=== PATIENT | female | born 1985 | race Caucasian/White ===

== ENCOUNTER → 2017-04-14 | Outpatient (CLI) | payer BC ==
[2017-04-14 17:23] LABS: Basophils % (A) 0 %; CH 31.2; CHCM 32.4; Eosinophils # (A) 0.1 k/uL (0-0.7); Eosinophils % (A) 1 %; HCT 41.8 % (34.0-46.0); HGB 13.7 gm/dL (11.4-16.0); Luc # (Auto) 0.12; Luc % (Auto) 1; Lymphocytes # (A) 2.3 k/uL (1.0-4.8); Lymphocytes % (A) 23 %; MCH 31.8 pg (25.0-35.0); MCHC 32.9 g/dL (31.0-37.0); MCV 96.7 fL (80.0-100.0); Mean Platelet Volume 7.8; Monocytes # (A) 0.4 k/uL (0-1.0); Monocytes % (A) 4 %; Neutrophils % (A) 71 %; RBC 4.32 m/uL (3.80-5.40); RDW 12.3 % (11.5-15.5); WBC (Perox) 10.05
== END | disposition home or self-care (01) ==
LOC: LABPAT 16:45
PROVIDERS: ATTEND Obstetrics & Gynecology
DX: Z01.812 Encounter for preprocedural laboratory examination (principal)
CPT/HCPCS: 85025

== ENCOUNTER 2017-04-20 11:37 | Day surgery (SDC) | payer BC ==
[2017-04-19 13:03] VITALS: BMI 32.5
[~2017-04-20 11:37] MED LIST: DEXAMETHASONE SOD PHOSPHATE 10 MG/ML 1 ML VIAL IV ONE; HYDROmorphone 0.5 MG/0.5 ML SYRINGE IVP PRN; LACTATED RINGERS 1,000 ML IV SCH; LIDOCAINE 1% 20 ML VIAL (10MG/ML) FOR IV START INTRADERMA PRN; ONDANSETRON 4 MG/2 ML VIAL IVP ONE; SCOPOLAMINE 1.5MG/72HR PATCH TRANSDERM ONE
[2017-04-20 12:05] VITALS: RESP 18
[2017-04-20] MEDS ORDERED: MIDAZOLAM 2 MG/2 ML VIAL IVP ONE (12:26)
--- NOTE | 2017-04-20 12:26 | P.HPOB ---
History of Present Illness H&P Date: 04/20/17 Chief Complaint: Pelvic pain with left ovarian cyst Malena is a 31-year-old who has a 5 cm left ovarian cyst. Patient has had symptomatic pain over the last several months and has found it difficult to function due to the increase in her pain. It is caused her to miss work and his change her lifestyle significantly. She is scheduled for a diagnostic laparoscopy with cystectomy versus cystotomy. Risks/benefits/alternatives to this procedure were discussed with the patient in detail and all questions are answered for her prior to proceeding to the operating room. On physical exam this a well-developed well-nourished female whose HEENT is otherwise unremarkable. Heart regular, lungs clear, extremities without pain. Abdomen soft nontender. Bowel sounds are positive. Pelvic exam reveals mild fullness in left adnexa otherwise no gross findings. Assessment left ovarian cyst. Plan diagnostic laparoscopy Past Medical History Additional Past Medical History / Comment(s): ovarian cyst History of Any Multi-Drug Resistant Organisms: None Reported Past Surgical History: Appendectomy Additional Past Surgical History / Comment(s): CYST REMOVED FROM NECK Past Anesthesia/Blood Transfusion Reactions: No Reported Reaction Smoking Status: Current every day smoker - Past Family History Father Family Medical History: Cancer Medications and Allergies Home Medications Medication Instructions Recorded Confirmed Type FLUoxetine HCL [PROzac] 1 each PO HS 04/19/17 04/20/17 History Allergies Allergy/AdvReac Type Severity Reaction Status Date / Time No Known Allergies Allergy Verified 04/19/17 12:59 Exam Osteopathic Statement: *. No significant issues noted on an osteopathic structural exam other than those noted in the History and Physical/Consult. - Vital Signs Vital signs: Vital Signs Temp Pulse Resp BP Pulse Ox 04/20/17 12:04 98.5 F 80 18 113/76 98
[2017-04-20] MEDS ORDERED: SUCCINYLCHOLINE CHLORIDE VIAL 200 MG/10 ML VIAL IV ONE (12:58)
[2017-04-20] MEDS ORDERED: KETOROLAC 30 MG/ML 1 ML VIAL ONE (12:58)
[2017-04-20] MEDS ORDERED: LIDOCAINE 1% INJ 10MG/ML (20 ML MDV) ONE (12:58)
[2017-04-20] MEDS ORDERED: PROPOFOL 10 MG/ML 20 ML VIAL IV ONE (12:58)
[2017-04-20] MEDS ORDERED: MIDAZOLAM 2 MG/2 ML VIAL ONE (12:58)
[2017-04-20] MEDS ORDERED: fentaNYL (PF) 50 MCG/ML 2 ML AMP ONE (12:58)
[2017-04-20] MEDS ORDERED: BUPIVACAINE (PF) 0.25% 30 ML VIAL SQ ONE (13:35)
--- NOTE | 2017-04-20 13:40 | P.OP ---
Date of Procedure: 04/20/17 Preoperative Diagnosis: Left ovarian cyst and chronic pelvic pain Postoperative Diagnosis: Same with stage I endometriosis Procedure(s) Performed: Diagnostic laparoscopy with left ovarian cystotomy and electrofulguration of endometrial implants Anesthesia: ANNMARIE Surgeon: Bebo Macdonald Estimated Blood Loss (ml): 3 Pathology: none sent Condition: stable Disposition: same day Operative Findings: 5 vesicular lesions on the fundal region of the uterus which were electrofulgurated consistent with endometriosis 5 cm cyst opened with opened J- hook cautery and drained Description of Procedure: Patient was taken to the operating suite where a general anesthetic was found be adequate. She was prepped and draped in normal sterile fashion and placed in dorsal lithotomy position. Initially a speculum was inserted into the vagina into lip of cervix was identified and grasped with an Allis clamp. It was then sounded and a kroner manipulator was inserted without difficulty. Red rubber cath was then used to drain the bladder of urine and then the incidents other than manipulator were removed. Gloves were changed and attention was turned to abdominal portion procedure where approximately 2 mL of quarter percent Marcaine was injected periumbilically. Through this injected anesthetic a 5 mm skin incision was made and through this incision under direct visualization with an optical trocar and sleeve the camera was inserted. Peritoneal placement was assured gas was allowed to fully insufflate the abdomen and patient's placement steep Trendelenburg position. In the right lower quadrant under direct visualization a second 5 mm skin incision was made and another 5 mm port was inserted through this opening. Uterus was then elevated and observations were made there were 5 small clear vesicular lesions consistent with endometriosis which were electrofulgurated on the fundal posterior region of the uterus. Once this was accomplished left ovary was brought upwards uterus was allowed to put behind it for support and using J- hook cautery a hole was created in the cyst wall. It was then drained. Uterus was then elevated and suction irrigation of the pelvis was done. Once this was accomplished no bleeding is noted therefore all instruments were removed sponge , lap, needle counts were all correct 2 area and skin incisions were then closed with 4-0 Vicryl subcuticularly and the remaining 8 mL of quarter percent Marcaine were injected around these incisions. From the vagina and patient was taken to the recovery room in stable and satisfactory condition Plan - Discharge Summary New Discharge Prescriptions: New HYDROcodone/APAP 5-325MG [[place] 5-325] 1 tab PO Q4HR PRN #30 tab PRN Reason: Pain Ibuprofen [Motrin] 600 mg PO Q6HR PRN #30 tab PRN Reason: Pain No Action FLUoxetine HCL [PROzac] 1 each PO HS Discharge Medication List FLUoxetine HCL [PROzac] 1 each PO HS 04/19/17 [History] HYDROcodone/APAP 5-325MG [[place] 5-325] 1 tab PO Q4HR PRN #30 tab 04/20/17 [Rx] Ibuprofen [Motrin] 600 mg PO Q6HR PRN #30 tab 04/20/17 [Rx] Follow up Appointment(s)/Referral(s): Bebo Macdonald DO [Doctor of Osteopathic Medicine] - 2 Weeks Activity/Diet/Wound Care/Special Instructions: No heavy lifting, limit stairs and driving and pelvic rest. If any high temperatures, heavy bleeding, or severe pain call my office
[2017-04-20 13:53] VITALS: TEMP 97.7
[2017-04-20] MEDS ORDERED: HYDROcodone/APAP 5-325MG 1 EACH TAB PO ONE (15:06)
[2017-04-20 15:34] VITALS: BP 107/69; PULSE 84
== END 2017-04-20 16:19 | disposition home or self-care (01) ==
LOC: OR 11:37
PROVIDERS: ATTEND Obstetrics & Gynecology
DX: N80.0 Endometriosis of uterus (principal); N83.202 Unspecified ovarian cyst, left side; R10.2 Pelvic and perineal pain; G89.29 Other chronic pain; F32.9 Major depressive disorder, single episode, unspecified; K21.9 Gastro-esophageal reflux disease without esophagitis; F17.200 Nicotine dependence, unspecified, uncomplicated; Z79.899 Other long term (current) drug therapy
CPT/HCPCS: 81025; 49322; 58662; J2250; J0330; J1100; J2405; J2001; J3010; J1885; J2704

== ENCOUNTER → 2017-05-12 | Outpatient (CLI) | payer BC ==
--- NOTE | 2017-05-12 15:37 | US ---
EXAMINATION TYPE: US pelvic complete DATE OF EXAM: 05/12/2017 COMPARISON: NONE CLINICAL HISTORY: Pelvic pain R10.2. Pt states LLQ pain s/p left ovarian cyst removal on 04/20/17 TECHNIQUE: Transabdominal (TA) Date of LMP: 04/25/2017 EXAM MEASUREMENTS: Uterus: 8.9 x 3.7 x 6.1 cm Endometrial Stripe: Right Horn= 0.5 cm/ Left Horn= 0.4 cm Right Ovary: 2.7 x 1.7 x 2.6 cm Left Ovary: 2.7 x 1.1 x 3.0 cm 1. Uterus: Anteverted Possible bicornuate 2. Endometrium: wnl 3. Right Ovary: wnl 4. Left Ovary: wnl 5. Bilateral Adnexa: wnl 6. Posterior cul-de-sac: wnl IMPRESSION: 1. Suspected bicornuate uterus. Visualized endometrial canals appear otherwise normal.
== END ==
LOC: RADUSWWP 12:01
PROVIDERS: ATTEND Obstetrics & Gynecology
DX: R10.2 Pelvic and perineal pain (principal)
CPT/HCPCS: 76856

== ENCOUNTER → 2017-08-30 | Outpatient (CLI) | payer BC ==
--- NOTE | 2017-08-30 10:03 | CT ---
EXAMINATION TYPE: CT abdomen pelvis wo con DATE OF EXAM: 08/30/2017 COMPARISON: NONE HISTORY: LLQ pain CT DLP: 941.9 mGycm Automated exposure control for dose reduction was used. TECHNIQUE: Helical acquisition of images was performed from the lung bases through the pelvis. FINDINGS: LUNG BASES: No significant abnormality is appreciated. LIVER/GB: No significant abnormality is appreciated. PANCREAS: No significant abnormality is seen. SPLEEN: No significant abnormality is seen. ADRENALS: No significant abnormality is seen. KIDNEYS: No significant abnormality is seen. FREE AIR: No free air is visualized RETROPERITONEAL ADENOPATHY: Tiny follicle or small cysts in the left adnexa measuring 1.7 cm. Correl ate for bicornuate uterus. REPRODUCTIVE ORGANS: No significant abnormality is seen URINARY BLADDER: No significant abnormality is seen. PELVIC ADENOPATHY: None visualized. OSSEOUS STRUCTURES: No significant abnormality is seen. BOWEL: No significant abnormality is seen. IMPRESSION: 1. 1.6 cm left adnexal cyst cyst likely ovarian. 2. Correlate for bicornuate uterus
== END | disposition home or self-care (01) ==
LOC: RADCTMAIN 09:21
PROVIDERS: ATTEND Family Medicine
DX: N85.8 Other specified noninflammatory disorders of uterus (principal); R10.9 Unspecified abdominal pain
CPT/HCPCS: 74176

== ENCOUNTER → 2017-09-08 | Outpatient (CLI) | payer BC ==
--- NOTE | 2017-09-08 19:45 | US ---
EXAMINATION TYPE: US transvaginal DATE OF EXAM: 09/08/2017 COMPARISON: CT & US CLINICAL HISTORY: N83.209 OVARIAN CYST. history of left cyst removal last year, patient is still havi ng left pelvic pain TECHNIQUE: Transvaginal (TV) Date of LMP: 08/26/2017 EXAM MEASUREMENTS: Uterus: 8.6 x 2.7 x 5.4 cm Endometrial Stripe: rt horn 0.6cm, left horn 0.5 cm Right Ovary: 4.1 x 2.9 x 2.7 cm Left Ovary: 3.8 x 2.3 x 3.4 cm 1. Uterus: Retroverted bicornuate 2. Endometrium: wnl 3. Right Ovary: there is a 2.0 x 1.7 x 1.9 cm cystic area with a solid rind that has peripheral flow . 4. Left Ovary: wnl 5. Bilateral Adnexa: wnl 6. Posterior cul-de-sac: small amount of free fluid IMPRESSION: Bicornuate retroverted uterus. Mild free fluid. Multiple right ovarian cysts. No solid ad nexal mass.
== END | disposition home or self-care (01) ==
LOC: RADUSWWP 16:43
PROVIDERS: ATTEND Family Medicine
DX: N83.201 Unspecified ovarian cyst, right side (principal); N85.4 Malposition of uterus
CPT/HCPCS: 76830

== ENCOUNTER → 2019-03-07 | Outpatient (CLI) | payer BC | END | disposition home or self-care (01) | LOC: LABWHC1 07:58 | PROVIDERS: ATTEND Obstetrics & Gynecology | DX: Z34.90 Encounter for supervision of normal pregnancy, unspecified, unspecified trimester (principal); Z3A.00 Weeks of gestation of pregnancy not specified | CPT/HCPCS: 36415; 82950 ==

== ENCOUNTER 2019-04-20 18:34 | Outpatient (CLI) | payer BC ==
[2019-04-20 20:24] VITALS: BP 124/65; PULSE 80; RESP 16; TEMP 98.5
--- NOTE | 2019-05-13 10:24 | P.MSEPDOC ---
Presenting Problems - Arrival Data Date of Arrival on Unit: 04/20/19 Time of Arrival on Unit: 19:35 Mode of Transport: Ambulatory - Complaint OB-Reason for Admission/Chief Complaint: Dizziness, Other Comment: nausea,vomiting, diarrhea past 2 weeks. pt last vomited last night at 0130 Medical History - Information : 3 Para: 1 Term: 1 : 0 Abortions: Spontaneous or Elective: 1 Number of Living Children: 1 - Gestational Age Gestational Age by VAISHALI (wks/days): 32 Weeks and 6 Days Review of Systems - Review of Systems Constitutional: No problems Breast: No problems ENT: No problems Cardiovascular: No problems Respiratory: No problems Gastrointestinal: Diarrhea Musculoskeletal: No problems Neurological: Dizziness Skin: No problems Vital Signs - Temperature Temperature: 98.5 F Temperature Source: Oral - Pulse Right Sitting Brachial Pulse Rate: 80 - Respirations Respiratory Rate: 16 Oxygen Delivery Method: Room Air O2 Sat by Pulse Oximetry: 98 - Blood Pressure Right Arm Sitting Blood Pressure: 124/65 Blood Pressure Mean: 84 Blood Pressure Source: Automatic Cuff Medical Screen Scoring (Pre) - Cervical Exam Dilation: Exam Deferred Effacement: Exam Deferred Membranes: Intact - Uterine Contractions Frequency: N/A - Maternal Vital Signs Maternal Temperature: N/A Maternal Blood Pressure: N/A Signs of Preeclampsia: N/A Maternal Respirations: N/A - Maternal Trauma Maternal Trauma: N/A - Assessment - Baby A Baseline FHR: 135 Heart Rate - NICHD Category: Category I (Normal) = 0 NST: Reactive Position: N/A Station: N/A - Total Score - Baby A Total Score - Baby A: 0 - Total Score - Baby B Total Score - Baby B: 0 - Total Score - Baby C Total Score - Baby C: 0 - Level of Risk - Baby A Level of Risk - Baby A: Low (0-5) - Level of Risk - Baby B Level of Risk - Baby B: Low (0-5) - Level of Risk - Baby C Level of Risk - Baby C: Low (0-5) Physician Notification (Pre) - Physician Notified Physician Notified Date: 04/20/19 Physician Notified Time: 19:28 Physician/Practitioner Notifed:: RHONDA New Order Received: Yes (PT MAY BE DISCHARGED HOME) Disposition - Disposition OB Disposition: Discharge to home, Written follow up instructions reviewed Discharge Date: 04/20/19 Discharge Time: 19:35 I agree with the RN Medical Screening Exam: Yes Risk & Benefit of care provided described in d/c instruction: Yes Diagnosis: VOMITING OF , UNSPECIFIED
== END 2019-04-20 19:35 | disposition home or self-care (01) ==
LOC: FBPOP 18:34
PROVIDERS: ATTEND Obstetrics & Gynecology Obstetrics
DX: O21.2 Late vomiting of pregnancy (principal); Z3A.32 32 weeks gestation of pregnancy
CPT/HCPCS: 59025; 99213

== ENCOUNTER 2019-06-05 06:00 | Inpatient (IN) | payer BC ==
[2019-06-05] MEDS ORDERED: METHYLERGONOVINE 0.2 MG/ML 1 ML AMP IM PRN (06:31)
[2019-06-05] MEDS ORDERED: LIDOCAINE 0.5% (PF) 5 MG/ML (50 ML SDV) SQ PRN (06:31)
[2019-06-05] MEDS ORDERED: CARBOPROST TROMETHAMINE 250 MCG/ML 1 ML AMP IM PRN (06:31)
[2019-06-05] MEDS ORDERED: TERBUTALINE 1 MG/ML VIAL SQ PRN (06:31)
[2019-06-05] MEDS ORDERED: OXYTOCIN 10 UNIT/ML 1 ML VIAL IM PRN (06:31)
[2019-06-05 06:37] VITALS: BMI 41.3
[2019-06-05 06:41] LABS: Basophils # (A) 0.1 k/uL (0-0.2); Basophils % (A) 1 %; Eosinophils # (A) 0.1 k/uL (0-0.7); Eosinophils % (A) 1 %; HCT 36.6 % (34.0-46.0); HGB 12.2 gm/dL (11.4-16.0); Lymphocytes # (A) 1.5 k/uL (1.0-4.8); Lymphocytes % (A) 13 %; MCHC 33.4 g/dL (31.0-37.0); MCV 89.6 fL (80.0-100.0); Mean Platelet Volume 7.4; Monocytes # (A) 0.7 k/uL (0-1.0); Monocytes % (A) 6 %; Neutrophils # (A) 8.5 k/uL (1.3-7.7); Neutrophils % (A) 76 %; Platelet Count 226 k/uL (150-450); RBC 4.09 m/uL (3.80-5.40); RDW 13.8 % (11.5-15.5); WBC 11.1 k/uL (3.8-10.6)
[2019-06-05] MEDS ORDERED: OXYTOCIN 30 UNITS/500 ML NS 30 UNIT in SALINE 1 500ML.BAG IV SCH (06:45)
[2019-06-05] MEDS ORDERED: PENICILLIN G POTASSIUM 5,000,000 UNIT in DEXTROSE 5% IN WATER 100 ML IVPB ONE ×2 (07:00)
[2019-06-05] MEDS: LACTATED RINGERS 1,000 ML IV SCH ×3 (07:23→13:59)
--- NOTE | 2019-06-05 09:17 | P.HPOB ---
History of Present Illness H&P Date: 06/05/19 This is a 33-year-old white female 3 para 1011 EDC 06/09/2019 at 39-4/7 weeks' gestation. Patient presents this morning for induction with favorable multiparous cervix. Fetus is been active throughout the . She does present with mild irregular spontaneous contractions. She denies fluid leakage or vaginal bleeding. Past medical history is significant for bicornuate uterus, PCO OS, depression, GERD, carpal tunnel syndrome. Past surgical history significant for diagnostic laparoscopy 2016, appendectomy in the past, voluntary termination of in the past. Current medications famotidine 40 mg tablets daily, vitamin daily, dye clean just as needed. ALLERGIES none known. Family history significant for diabetes, colon cancer, breast cancer, ovarian cancer. Reproductive history significant for vaginal delivery 2008 of 8 lbs. 11 oz. female infant. Social history patient is , she works at [employer], she has never been a smoker and denies drug use. history blood type A positive, rubella status immune. VDRL testing, urine culture, hepatitis B surface antigen, HIV testing all negative. Gonorrhea and chlamydia cultures negative. One-hour Glucola 132. Group B strep positive in the urine. On exam this is a pleasant white female who is 5 foot 9 inches, 280 pounds, blood pressure 123/76 on admission. General physical exam is within normal limits, chest is clear, extremities reveal no edema. Cervix is 4-5 cm dilated, 70% effaced, -2 station vertex presentation. Artificial amniorrhexis has revealed clear fluid. Uterine contractions are occurring every 4-5 minutes apart at this time of moderate intensity. heart rate is consistent with reactive NST. Impression: 39-4/7 weeks intrauterine , here for induction of labor, all signs reassuring. Group B strep culture positive. Plan: Continue close maternal and surveillance. Penicillin G prophylaxis has been instituted. Oxytocin per protocol. Anticipate normal spontaneous vaginal delivery. Past Medical History Past Medical History: GERD/Reflux Additional Past Medical History / Comment(s): ovarian cyst History of Any Multi-Drug Resistant Organisms: None Reported Past Surgical History: Appendectomy Additional Past Surgical History / Comment(s): CYST REMOVED FROM NECK Past Anesthesia/Blood Transfusion Reactions: No Reported Reaction Past Psychological History: No Psychological Hx Reported Smoking Status: Former smoker Past Alcohol Use History: Occasional Additional Past Alcohol Use History / Comment(s): QUIT SMOKING 02/2018 Past Drug Use History: None Reported - Past Family History Father Family Medical History: Cancer Medications and Allergies Home Medications Medication Instructions Recorded Confirmed Type Omeprazole 1 tab PO DAILY 06/05/19 06/05/19 History Allergies Allergy/AdvReac Type Severity Reaction Status Date / Time No Known Allergies Allergy Verified 06/05/19 06:29 Exam Vital Signs Temp Pulse Resp BP Pulse Ox 06/05/19 06:28 96.6 F L 98 16 123/76 97 Intake and Output 06/04/19 06/05/19 06/05/19 22:59 06:59 14:59 Other: Weight 127.006 kg See dictation under HPI please Results Result Diagrams: 06/05/19 06:24 Abnormal Lab Results - Last 24 Hours (Table) 06/05/19 Range/Units 06:24 WBC 11.1 H (3.8-10.6) k/uL Neutrophils # 8.5 H (1.3-7.7) k/uL Assessment and Plan Assessment: 39-4/7 weeks intrauterine , here for induction of labor, all signs isabel ssuring. Positive group B strep. Plan: Continue oxytocin augmentation per hospital protocol. Continue penicillin G prophylaxis. Continue close maternal and surveillance. Anticipate normal spontaneous vaginal delivery. Time with Patient: Less than 30
[2019-06-05] MEDS ORDERED: fentaNYL (PF) 50 MCG/ML 5 ML AMP ONE (09:25)
[2019-06-05] MEDS ORDERED: ROPIVACAINE 5MG/ML 20ML VIAL ONE (09:25)
[2019-06-05] MEDS ORDERED: SODIUM CHLORIDE 0.9% 100 ML BAG ONE (09:25)
[2019-06-05] MEDS ORDERED: ROPIVACAINE 100 MG, fentaNYL (PF) 200 MCG in SODIUM CHLORIDE 0.9% 76 ML EPIDURAL ONE (10:29)
[2019-06-05] MEDS: PENICILLIN G POTASSIUM 2,500,000 UNIT in DEXTROSE 5% IN WATER 100 ML IVPB SCH ×4 (14:19→15:37)
[2019-06-05] MEDS ORDERED: diphenhydrAMINE ELIXIR 25 MG/10 ML CUP PO PRN (15:06)
[2019-06-05] MEDS ORDERED: ZOLPIDEM 5 MG TAB PO PRN (15:06)
[2019-06-05] MEDS ORDERED: WITCH HAZEL 1 EACH MED..PAD TOPICAL PRN ×2 (15:06→15:32)
[2019-06-05] MEDS ORDERED: diphenhydrAMINE 50 MG CAP PO PRN (15:06)
[2019-06-05] MEDS ORDERED: diphenhydrAMINE 50 MG/ML 1 ML VIAL IVP PRN ×2 (15:06)
[2019-06-05] MEDS ORDERED: diphenhydrAMINE 25 MG CAP PO PRN (15:06)
[2019-06-05] MEDS ORDERED: HYDROCORTISONE 2.5% RECTAL CREAM 30 GM TUBE RECTAL PRN (15:06)
[2019-06-05] MEDS ORDERED: BENZOCAINE/MENTHOL SPRAY 1 GM/SPRAY AEROSOL TOPICAL PRN (15:06)
[2019-06-05] MEDS ORDERED: SIMETHICONE 80 MG CHEWABLE PO PRN (15:06)
[2019-06-05] MEDS ORDERED: LANOLIN CREAM 5 GM TUBE TOPICAL PRN (15:06)
--- NOTE | 2019-06-05 15:06 | P.PROBDLV ---
Vaginal Delivery Note - . Vaginal Delivery Note: This is a 33-year-old white female 3 para 1011 EDC 06/09/2019 at 39-4/7 weeks' gestation. Patient presented for induction with favorable multiparous cervix. Fetus is been active throughout the , is significant for positive group B strep cultures. Please see my dictated history and physical for details. Artificial amniorrhexis revealed clear fluid. heart tones were reassuring throughout the first and second stages of labor, with several variable decelerations noted, excellent [id number]-[id number] variability, and no late components. Patient requested and received an epidural. She progressed well through the first stage of labor was judged to be completely dilated at 1415 hours and began the second stage of labor at that time. Perineal body was prepped and draped in usual sterile fashion. With excellent maternal expulsive efforts ultimately the head delivered occiput posterior. Infant restituted accordingly and the left or anterior shoulder was gently delivered from underneath the pubic symphysis. At this time the oropharynx, nasopharynx, and external nares were all bulb suctioned on the perineal body. Patient was officially delivered of a liveborn male infant at 1452 hours. Umbilical cord was doubly clamped and ligated, he was handed to waiting nurses for evaluation where scores of 9 and 9 at one and 5 minutes respectively were given. Placenta delivered spontaneously, it was inspected and noted to be intact with trivascular cord. Uterus is then massaged. Careful inspection of the cervix, vagina, perineum, periurethral, and perirectal areas revealed no lacerations and no defects. Total estimated blood loss 300 mL's. All sponge needle and enhancement counts are correct. weight 8 lbs. 3 oz. or 3720 g. Patient and her are requesting circumcision further infant son.
[2019-06-05] MEDS ORDERED: OXYTOCIN 20 UNITS/1000 ML NS 1,000 ML IV SCH (15:15)
[2019-06-05] MEDS: IBUPROFEN 600 MG TAB PO PRN (16:38)
[2019-06-05] MEDS: SENNOSIDES-DOCUSATE SODIUM 1 EACH TAB PO SCH (19:43)
[2019-06-05] MEDS: ACETAMINOPHEN TAB 325 MG TAB PO PRN (19:53)
[2019-06-06] MEDS: IBUPROFEN 600 MG TAB PO PRN ×4 (00:33→23:28)
--- NOTE | 2019-06-06 08:07 | P.DS ---
Providers Date of admission: 06/05/19 06:06 Expected date of discharge: 06/06/19 Attending physician: Maite Meza Primary care physician: Stated None Hospital Course: This is a 33-year-old female 3 para 1011 EDC 06/09/2019 at 39-4/7 weeks' gestation. Patient presented for induction with favorable multiparous cervix. History is significant for bicornuate uterus, positive group B strep cultures, rubella status immune, blood type A+. Please see admitting H&P for details. Patient was admitted, artificial amniorrhexis revealed clear fluid. Oxytocin was started and titrated per hospital protocol. Epidural was placed per her request. Patient went on to deliver a liveborn male infant with scores of 9 and 9 at one and 5 minutes respectively. weight 8 lbs. 3 oz. or 3720 g. No perineal lacerations were encountered. Total estimated blood loss 300 mL's. Please see dictated delivery note for details. This morning the patient is doing well. She is voiding, ambulating, and passing flatus without difficulty. Vital signs are stable and she is afebrile. Fundus is firm and in the midline, symmetric and 18 week size. Extremities are negative for edema. Chest is clear. [place] is doing well, circumcision has been performed. Patient is judged to be in very good condition for discharge home. She will follow-up with me in the office in 6 weeks. I have reminded her no intercourse, tampons or douching. She will use [id number] Advil or Aleve, or Motrin as needed for pain. She will call with any fevers shakes or chills, foul smelling or copious lochia, with the passage of large blood clots, with any pain not alleviated by [id number] products or indeed with any concerns. Contraceptive options have been discussed briefly and we will review this further in the office. Patient Condition at Discharge: Good Plan - Discharge Summary New Discharge Prescriptions: No Action Omeprazole 1 tab PO DAILY Discharge Medication List Omeprazole 1 tab PO DAILY 06/05/19 [History] Follow up Appointment(s)/Referral(s): Maite Meza MD [STAFF PHYSICIAN] - 6 Weeks Discharge Disposition: HOME SELF-CARE
[2019-06-06] MEDS: SENNOSIDES-DOCUSATE SODIUM 1 EACH TAB PO SCH ×2 (08:12→19:59)
[2019-06-06] MEDS: ACETAMINOPHEN TAB 325 MG TAB PO PRN (19:59)
[2019-06-07 10:15] VITALS: BP 145/72; PULSE 90; RESP 18; TEMP 98.3
[2019-06-07] MEDS: SENNOSIDES-DOCUSATE SODIUM 1 EACH TAB PO SCH (10:15)
== END 2019-06-07 10:52 | disposition home or self-care (01) | DRG 807 ==
LOC: 4FBP 06:06
PROVIDERS: ADMIT Obstetrics & Gynecology; ATTEND Obstetrics & Gynecology
PROC: 10E0XZZ Delivery of Products of Conception, External Approach (ICD-10-PCS; principal; 2019-06-05)
PROC: 10907ZC Drainage of Amniotic Fluid, Therapeutic from Products of Conception, Via Natural or Artificial Opening (ICD-10-PCS; 2019-06-05)
PROC: 00HU33Z Insertion of Infusion Device into Spinal Canal, Percutaneous Approach (ICD-10-PCS; 2019-06-05)
PROC: 3E0R3BZ Introduction of Anesthetic Agent into Spinal Canal, Percutaneous Approach (ICD-10-PCS; 2019-06-05)
DX: O34.03 Maternal care for unspecified congenital malformation of uterus, third trimester (principal); Z37.0 Single live birth; O99.344 Other mental disorders complicating childbirth; O76 Abnormality in fetal heart rate and rhythm complicating labor and delivery; O99.824 Streptococcus B carrier state complicating childbirth; O34.00 Maternal care for unspecified congenital malformation of uterus, unspecified trimester; Q51.3 Bicornate uterus; O99.62 Diseases of the digestive system complicating childbirth; K21.9 Gastro-esophageal reflux disease without esophagitis; O99.89 Other specified diseases and conditions complicating pregnancy, childbirth and the puerperium; F32.9 Major depressive disorder, single episode, unspecified; G56.00 Carpal tunnel syndrome, unspecified upper limb; Z3A.39 39 weeks gestation of pregnancy; Z87.891 Personal history of nicotine dependence; Z90.49 Acquired absence of other specified parts of digestive tract; Z80.0 Family history of malignant neoplasm of digestive organs; Z80.3 Family history of malignant neoplasm of breast; Z80.41 Family history of malignant neoplasm of ovary; Z83.3 Family history of diabetes mellitus
CPT/HCPCS: 85025; 86850; 86900; 86901

== ENCOUNTER 2019-08-24 14:39 | Emergency (ER) | payer OTHER, BC ==
[2019-08-24] MEDS ORDERED: ACETAMINOPHEN TAB 325 MG TAB PO STA (15:11)
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
--- NOTE | 2019-08-24 15:59 | XR ---
EXAMINATION TYPE: XR chest 2V DATE OF EXAM: 08/24/2019 COMPARISON: NONE HISTORY: Chest pain TECHNIQUE: Frontal and lateral views of the chest are obtained. FINDINGS: There is no focal air space opacity. No evidence for pneumothorax. No pleural effusion. The cardiac silhouette size is within normal limits. The osseous structures are grossly intact. IMPRESSION: 1. No acute cardiopulmonary process.
--- NOTE | 2019-08-24 16:00 | XR ---
EXAMINATION TYPE: XR shoulder complete LT DATE OF EXAM: 08/24/2019 CLINICAL HISTORY: pain COMPARISON: NONE TECHNIQUE: Three views of the left shoulder are obtained. FINDINGS: There is no acute fracture/dislocation evident. The acromioclavicular and glenohumeral lali int spaces appear within normal limits. The visualized ribs are intact and unremarkable. IMPRESSION: 1. There is no acute fracture or dislocation. ICD 10 NO FRACTURE, INITIAL EVALUATION
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
[2019-08-24 17:04] VITALS: BP 121/84; PULSE 82; RESP 18; TEMP 98.3
== END 2019-08-24 17:06 | disposition home or self-care (01) ==
LOC: EC 14:39
DX: S16.1XXA Strain of muscle, fascia and tendon at neck level, initial encounter (principal); S46.912A Strain of unspecified muscle, fascia and tendon at shoulder and upper arm level, left arm, initial encounter; M79.10 Myalgia, unspecified site; K21.9 Gastro-esophageal reflux disease without esophagitis; Z79.899 Other long term (current) drug therapy; Z87.891 Personal history of nicotine dependence; V43.52XA Car driver injured in collision with other type car in traffic accident, initial encounter; Y92.410 Unspecified street and highway as the place of occurrence of the external cause
CPT/HCPCS: 70450; 71046; 72125; 99284

== ENCOUNTER 2020-09-08 14:34 | Emergency (ER) | payer BC, OTHER ==
[2020-09-08 14:38] VITALS: TEMP 98.8
--- NOTE | 2020-09-08 15:01 | ED ---
Female Urogenital HPI - General Chief complaint: Vaginal Bleeding Stated complaint: Poss miscarriage Time Seen by Provider: 09/08/20 14:41 Source: patient, RN notes reviewed Mode of arrival: ambulatory Limitations: no limitations - History of Present Illness Initial comments: 35-year-old female presents emergency from chief complaint of vaginal bleeding. Patient is A0-weeks seen Dr. Meza. Patient did have an ultrasound and first appointment 2 weeks ago which showed intrauterine . Patient states that pressure 1 hour ago she had a sudden onset of gush of bleeding following with clots. She states she has some lower abdominal pressure. Patient states that she called Dr. Meza's office but did not answers she came the emergency department. Patient states she is a positive blood type. Denies any other associated symptoms. Last Menstrual Period: 07/07/20 - Related Data Home Medications Medication Instructions Recorded Confirmed Doxylamine Succinate [Unisom] 25 mg PO HS 09/08/20 09/08/20 Pnv No.95/Ferrous Fum/Folic AC 1 tab PO HS 09/08/20 09/08/20 [ Multivitamin Tablet] Pyridoxine HCl (Vitamin B6) 100 mg PO HS 09/08/20 09/08/20 [Vitamin B-6] Previous Rx's Medication Instructions Recorded Cephalexin [Keflex] 500 mg PO Q8HR #21 cap 09/08/20 Allergies Allergy/AdvReac Type Severity Reaction Status Date / Time No Known Allergies Allergy Verified 09/08/20 16:03 Review of Systems ROS Statement: Those systems with pertinent positive or pertinent negative responses have been documented in the HPI. ROS Other: All systems not noted in ROS Statement are negative. Past Medical History Past Medical History: GERD/Reflux Additional Past Medical History / Comment(s): ovarian cyst History of Any Multi-Drug Resistant Organisms: None Reported Past Surgical History: Appendectomy Additional Past Surgical History / Comment(s): CYST REMOVED FROM NECK Past Anesthesia/Blood Transfusion Reactions: No Reported Reaction Past Psychological History: No Psychological Hx Reported Smoking Status: Former smoker Past Alcohol Use History: Occasional Past Drug Use History: None Reported - Past Family History Father Family Medical History: Cancer General Exam Limitations: no limitations General appearance: alert, in no apparent distress Head exam: Present: atraumatic, normocephalic, normal inspection Eye exam: Present: normal appearance, PERRL, EOMI. Absent: scleral icterus, conjunctival injection, periorbital swelling ENT exam: Present: normal exam, normal oropharynx, mucous membranes moist Neck exam: Present: normal inspection. Absent: tenderness, meningismus, lymphadenopathy Respiratory exam: Present: normal lung sounds bilaterally. Absent: respiratory distress, wheezes, rales, rhonchi, stridor Cardiovascular Exam: Present: regular rate, normal rhythm, normal heart sounds. Absent: systolic murmur, diastolic murmur, rubs, gallop, clicks GI/Abdominal exam: Present: soft, normal bowel sounds. Absent: distended, tenderness, guarding, rebound, rigid Back exam: Absent: CVA tenderness (R), CVA tenderness (L) Neurological exam: Present: alert Skin exam: Present: warm, dry, intact, normal color. Absent: rash Course Vital Signs 09/08/20 09/08/20 14:36 16:21 Temperature 98.8 F Pulse Rate 107 H 87 Respiratory 20 16 Rate Blood Pressure 134/85 132/83 O2 Sat by Pulse 100 100 Oximetry Medical Decision Making - Medical Decision Making Ultrasound shows large subchorionic hemorrhage. Patient's bleeding has been intermittent. Patient urinalysis revealed evidence of moderate amount of WBCs. Patient starting antibiotics. Patient will contact Dr. Meza and will have close follow-up return parameters were discussed. We discussed bowel increased risk for miscarriage - Lab Data Result diagrams: 09/08/20 14:56 09/08/20 14:56 Lab Results 09/08/20 09/08/20 09/08/20 Range/Units 14:56 14:56 14:56 WBC 9.7 (3.8-10.6) k/uL RBC 4.78 (3.80-5.40) m/uL Hgb 13.8 (11.4-16.0) gm/dL Hct 43.3 (34.0-46.0) % MCV 90.4 (80.0-100.0) fL MCH 28.8 (25.0-35.0) pg MCHC 31.9 (31.0-37.0) g/dL RDW 13.0 (11.5-15.5) % Plt Count 232 (150-450) k/uL MPV 8.3 Neutrophils % 74 % Lymphocytes % 19 % Monocytes % 4 % Eosinophils % 1 % Basophils % 0 % Neutrophils # 7.2 (1.3-7.7) k/uL Lymphocytes # 1.8 (1.0-4.8) k/uL Monocytes # 0.4 (0-1.0) k/uL Eosinophils # 0.1 (0-0.7) k/uL Basophils # 0.0 (0-0.2) k/uL Sodium 138 (137-145) mmol/L Potassium 3.8 (3.5-5.1) mmol/L Chloride 108 H (98-107) mmol/L Carbon Dioxide 20 L (22-30) mmol/L Anion Gap 10 mmol/L BUN 13 (7-17) mg/dL Creatinine 0.59 (0.52-1.04) mg/dL Est GFR (CKD-EPI)AfAm >90 (>60 ml/min/1.73 sqM) Est GFR (CKD-EPI)NonAf >90 (>60 ml/min/1.73 sqM) Glucose 93 (74-99) mg/dL Calcium 9.5 (8.4-10.2) mg/dL Urine Color Light Red Urine Appearance Clear (Clear) Urine pH 5.5 (5.0-8.0) Ur Specific [place] 1.031 (1.001-1.035) Urine Protein 1+ H (Negative) Urine Glucose (UA) Negative (Negative) Urine Ketones Trace H (Negative) Urine Blood Large H (Negative) Urine Nitrite Negative (Negative) Urine Bilirubin Negative (Negative) Urine Urobilinogen <2.0 (<2.0) mg/dL Ur Leukocyte Esterase Small H (Negative) Urine RBC >182 H (0-5) /hpf Urine WBC 33 H (0-5) /hpf Urine WBC Clumps Few H (None) /hpf Ur Squamous Epith Cells 1 (0-4) /hpf Urine Mucus Few H (None) /hpf Blood Type Blood Type Recheck Bld Type Recheck Status 09/08/20 Range/Units 14:56 WBC (3.8-10.6) k/uL RBC (3.80-5.40) m/uL Hgb (11.4-16.0) gm/dL Hct (34.0-46.0) % MCV (80.0-100.0) fL MCH (25.0-35.0) pg MCHC (31.0-37.0) g/dL RDW (11.5-15.5) % Plt Count (150-450) k/uL MPV Neutrophils % % Lymphocytes % % Monocytes % % Eosinophils % % Basophils % % Neutrophils # (1.3-7.7) k/uL Lymphocytes # (1.0-4.8) k/uL Monocytes # (0-1.0) k/uL Eosinophils # (0-0.7) k/uL Basophils # (0-0.2) k/uL Sodium (137-145) mmol/L Potassium (3.5-5.1) mmol/L Chloride (98-107) mmol/L Carbon Dioxide (22-30) mmol/L Anion Gap mmol/L BUN (7-17) mg/dL Creatinine (0.52-1.04) mg/dL Est GFR (CKD-EPI)AfAm (>60 ml/min/1.73 sqM) Est GFR (CKD-EPI)NonAf (>60 ml/min/1.73 sqM) Glucose (74-99) mg/dL Calcium (8.4-10.2) mg/dL Urine Color Urine Appearance (Clear) Urine pH (5.0-8.0) Ur Specific [place] (1.001-1.035) Urine Protein (Negative) Urine Glucose (UA) (Negative) Urine Ketones (Negative) Urine Blood (Negative) Urine Nitrite (Negative) Urine Bilirubin (Negative) Urine Urobilinogen (<2.0) mg/dL Ur Leukocyte Esterase (Negative) Urine RBC (0-5) /hpf Urine WBC (0-5) /hpf Urine WBC Clumps (None) /hpf Ur Squamous Epith Cells (0-4) /hpf Urine Mucus (None) /hpf Blood Type A Positive Blood Type Recheck A Pos Bld Type Recheck Status No Disposition Clinical Impression: Threatened miscarriage in early , Subchorionic hemorrhage, UTI in Disposition: HOME SELF-CARE Condition: Stable Instructions (If sedation given, give patient instructions): Subchorionic Hemorrhage (ED) Additional Instructions: Please return to the Emergency Department if symptoms worsen or any other concerns. Prescriptions: Cephalexin [Keflex] 500 mg PO Q8HR #21 cap Is patient prescribed a controlled substance at d/c from ED?: No Referrals: Collins Bateman MD [Primary Care Provider] - 1-2 days Maite Meza MD [Family Provider] - 1-2 days Time of Disposition: 16:37
[2020-09-08 15:13] LABS: Basophils % (A) 0 %; Eosinophils # (A) 0.1 k/uL (0-0.7); Eosinophils % (A) 1 %; HCT 43.3 % (34.0-46.0); HGB 13.8 gm/dL (11.4-16.0); Lymphocytes # (A) 1.8 k/uL (1.0-4.8); Lymphocytes % (A) 19 %; MCH 28.8 pg (25.0-35.0); MCHC 31.9 g/dL (31.0-37.0); MCV 90.4 fL (80.0-100.0); Mean Platelet Volume 8.3; Monocytes # (A) 0.4 k/uL (0-1.0); Monocytes % (A) 4 %; Neutrophils # (A) 7.2 k/uL (1.3-7.7); Neutrophils % (A) 74 %; Platelet Count 232 k/uL (150-450); RBC 4.78 m/uL (3.80-5.40); WBC 9.7 k/uL (3.8-10.6)
[2020-09-08 15:17] LABS: Appearance,Urine Clear (Clear); Bilirubin,Urine Negative (Negative); Blood,Urine Large (Negative); Color,Urine Light Red; Glucose,Urine (UA) Negative (Negative); Ketones,Urine Trace (Negative); Leukocyte Esterase,Urine Small (Negative); Mucus,Urine Few /hpf; Nitrite,Urine Negative (Negative); PH, Urine 5.5 (5.0-8.0); Protein,Urine 1+ (Negative); RBC,Urine >182 /hpf (0-5); Specific Gravity,Urine 1.031 (1.001-1.035); Squamous Epithelial Cell,Urine 1 /hpf (0-4); Urobilinogen,Urine <2.0 mg/dL (<2.0); WBC,Urine 33 /hpf (0-5)
[2020-09-08 15:25] LABS: African American GFR (CKD) >90 (>60 ml/min/1.73 sqM); Anion Gap 10 mmol/L; Blood Urea Nitrogen 13 mg/dL (7-17); Calcium 9.5 mg/dL (8.4-10.2); Carbon Dioxide 20 mmol/L (22-30); Chloride 108 mmol/L (98-107); Glucose 93 mg/dL (74-99); Non-African American GFR(CKD) >90 (>60 ml/min/1.73 sqM); Potassium 3.8 mmol/L (3.5-5.1); Sodium 138 mmol/L (137-145)
--- NOTE | 2020-09-08 15:56 | US ---
EXAMINATION TYPE: Ultrasound OB <= 14 week fetus DATE OF EXAM: 09/08/2020 3:46 PM COMPARISON: NONE CLINICAL HISTORY: 35-year-old female pain, bleeding at 10 weeks gestational age. Bleeding x 1 hour EXAM PERFORMED: Transabdominal (TA) FINDINGS: EXAM MEASUREMENTS: GESTATIONAL AGE / DATING Physician Established: (10 weeks/1 days) EDC: 04/05/2021 Dates by LMP: Unknown Dates by First Scan: This is 1st scan Dates by Current Scan for: ( 9 weeks/5 days) +/- 6 days EDC: 04/08/2021 MATERNAL ANATOMY Uterus: 12.7 x 7.3 x 9.2cm, anteverted Right Ovary: 3.0 x 2.2 x 1.3cm Left Ovary: 3.2 x 2.2 x 2.2cm Post CDS / Adnexa: wnl Presence of free fluid: no Presence of corpus luteal cyst: not seen Presence of subchorionic bleed: yes - 2.3 x 1.6 x 2.6cm GESTATION / SURVEY CRL: 2.9cm (9 weeks/5 days) Yolk Sac (normal less than 6mm): not seen Heart Rate: 172 bpm Rhythm: Normal IUP: Viable IUP Date of LMP: Unknown Beta HcG (if available): Not available at time of exam ASSOCIATE DIRECTOR OF NURSING NOTES: Viable single IUP measuring 9 weeks 5 days with a heart rate of 172bpm and an jaden mated delivery date of 04/08/2021, 2.6cm subchorionic bleed seen. IMPRESSION: 1. Single live intrauterine with established gestational age of 10 weeks 1 day reported by the patient. Current ultrasound biometry is slightly smaller at 9 weeks 5 days but concordant 2. Moderate-sized left fundal perigestational bleed measuring 2.6 x 2.3 cm. 3. heart rate at the upper limits of normal at 172 BPM. Short interval follow-up can be conside red. 4. Otherwise, complete survey recommended at 18-20 weeks.
[2020-09-08 16:25] VITALS: BP 132/83; PULSE 87; RESP 16
== END 2020-09-08 16:39 | disposition home or self-care (01) ==
LOC: EC 14:34
DX: O20.0 Threatened abortion (principal); O20.8 Other hemorrhage in early pregnancy; O23.41 Unspecified infection of urinary tract in pregnancy, first trimester; Z3A.10 10 weeks gestation of pregnancy; Z90.49 Acquired absence of other specified parts of digestive tract; Z87.891 Personal history of nicotine dependence
CPT/HCPCS: 36415; 76801; 80048; 81001; 85025; 86900; 86901; 87086; 99284

== ENCOUNTER → 2020-09-10 | Outpatient (CLI) | payer BC ==
--- NOTE | 2020-09-10 12:22 | US ---
EXAMINATION TYPE: US abdomen complete DATE OF EXAM: 09/10/2020 COMPARISON: NONE CLINICAL HISTORY: R10.9 abdominal pain LUQ pain. EXAM MEASUREMENTS: Liver Length: 15.8 cm Gallbladder Wall: 0.2 cm CBD: 0.6 cm Spleen: 13.4 cm Right Kidney: 10.4 x 4.6 x 5.0 cm Left Kidney: 12.1 x 5.4 x 5.4 cm Patient of large body habitus with extensive overlying bowel gas. Pancreas: Obscured by bowel gas Liver: wnl Gallbladder: sludge Evidence for sonographic Hernandes's sign: no CBD: wnl Spleen: measures large Right Kidney: Portions of inferior pole and superior pole obscured by bowel gas Left Kidney: measures larger than right, this may be due to poor visualization of right kidney Upper IVC: wnl Abd Aorta: Mostly obscured by overlying bowel gas, portions visualized wnl The liver is homogenous. The intrahepatic portion of the IVC and proximal abdominal aorta are within normal limits. Common bile duct is unremarkable. The visualized portions of the pancreas are homog enous. Kidneys are symmetric and free of hydronephrosis. No renal lesions are seen. IMPRESSION: 1. Borderline splenomegaly. 2. Gallbladder sludge.
--- NOTE | 2020-09-10 12:23 | US ---
EXAMINATION TYPE: Transabdominal DATE OF EXAM: 09/10/2020 11:40 AM COMPARISON: NONE CLINICAL HISTORY: N93.9 Abnormal uterine and vaginal bleeding unspecified. EXAM PERFORMED: EXAM MEASUREMENTS: GESTATIONAL AGE / DATING Physician Established: Not yet established Dates by LMP: LMP unknown Dates by First Scan: (10 weeks/3 days) EDC: 04-05-21 Dates by Current Scan for: (10 weeks/3 days) EDC: 04-05-21 MATERNAL ANATOMY Uterus: 13.2 x 7.2 x 9.6cm Right Ovary: obscured by overlying bowel Left Ovary: 3.0 x 2.9 x 2.4cm Post CDS / Adnexa: wnl Presence of free fluid: no Subchorionic bleed measuring 3.8 x 0.7 x 2.4cm Previous measurement 09/08/20 at 2.3 x 1.6 x 2.6cm GESTATION / SURVEY CRL: 3.5 (10 weeks/3 days) Yolk Sac (normal less than 6mm): 5mm Heart Rate: 172 bpm Rhythm: Normal IUP: Viable IUP Beta HcG (if available): Not available at this time IMPRESSION: Single viable injury in .
== END | disposition home or self-care (01) ==
LOC: RADUSWWP 10:53
PROVIDERS: ATTEND Family Medicine
DX: O9A.211 Injury, poisoning and certain other consequences of external causes complicating pregnancy, first trimester (principal); K82.8 Other specified diseases of gallbladder; R16.1 Splenomegaly, not elsewhere classified; R10.12 Left upper quadrant pain
CPT/HCPCS: 76700; 76801

== ENCOUNTER 2020-10-27 10:55 | Day surgery (SDC) | payer BC ==
[~2020-10-27 10:55] MED LIST changes: -DEXAMETHASONE SOD PHOSPHATE 10 MG/ML 1 ML VIAL IV ONE; -HYDROmorphone 0.5 MG/0.5 ML SYRINGE IVP PRN; -LACTATED RINGERS 1,000 ML IV SCH; -LIDOCAINE 1% 20 ML VIAL (10MG/ML) FOR IV START INTRADERMA PRN; -ONDANSETRON 4 MG/2 ML VIAL IVP ONE; +Pre Op ABX Message 1 EACH MISC MISCELLANE ONE; -SCOPOLAMINE 1.5MG/72HR PATCH TRANSDERM ONE
[2020-10-27] MEDS ORDERED: LIDOCAINE 1% (10MG/ML) FOR IV START INTRADERMA ONE (11:27)
[2020-10-27] MEDS ORDERED: LACTATED RINGERS 1,000 ML IV ONE (11:27)
[2020-10-27] MEDS ORDERED: ONDANSETRON 4 MG/2 ML VIAL ONE (11:33)
[2020-10-27] MEDS ORDERED: DEXAMETHASONE SOD PHOSPHATE 4 MG/ML 1 ML VIAL IVP ONE (11:35)
[2020-10-27] MEDS ORDERED: ONDANSETRON 4 MG/2 ML VIAL IVP ONE (11:35)
[2020-10-27] MEDS ORDERED: PROPOFOL 10 MG/ML 20 ML VIAL IV ONE (11:45)
[2020-10-27] MEDS ORDERED: METHYLERGONOVINE 0.2 MG/ML 1 ML AMP ONE (11:45)
[2020-10-27] MEDS ORDERED: MIDAZOLAM 2 MG/2 ML VIAL ONE (11:45)
[2020-10-27] MEDS ORDERED: fentaNYL (PF) 50 MCG/ML 2 ML AMP ONE (11:45)
[2020-10-27] MEDS ORDERED: KETOROLAC 15 MG/ML 1 ML VIAL ONE (11:45)
[2020-10-27] MEDS ORDERED: SUCCINYLCHOLINE CHLORIDE 100 MG/5 ML SYR IV ONE (11:45)
[2020-10-27 11:59] LABS: Basophils % (A) 0 %; Eosinophils # (A) 0.1 k/uL (0-0.7); Eosinophils % (A) 1 %; HCT 26.9 % (34.0-46.0); Lymphocytes # (A) 1.6 k/uL (1.0-4.8); Lymphocytes % (A) 17 %; MCHC 35.4 g/dL (31.0-37.0); MCV 90.3 fL (80.0-100.0); Mean Platelet Volume 7.9; Monocytes # (A) 0.4 k/uL (0-1.0); Monocytes % (A) 4 %; Neutrophils # (A) 7.2 k/uL (1.3-7.7); Neutrophils % (A) 77 %; Platelet Count 236 k/uL (150-450); RBC 2.98 m/uL (3.80-5.40); RDW 13.9 % (11.5-15.5); WBC 9.3 k/uL (3.8-10.6)
[2020-10-27 12:00] LABS: HGB 9.5 gm/dL (11.4-16.0)
--- NOTE | 2020-10-27 12:29 | P.OP ---
Date of Procedure: 10/27/20 Preoperative Diagnosis: Pain products of conception, status post 16 week loss 1 week ago, bicornuate uterus. Postoperative Diagnosis: Same, bicornuate uterus Procedure(s) Performed: Suction dilatation and curettage of the uterus with sonographic evaluation at the bedside Anesthesia: ANNMARIE Surgeon: Maite Meza Estimated Blood Loss (ml): 150 IV fluids (ml): 500 Urine output (ml): 150 Pathology: other (Intrauterine curettings) Condition: stable Disposition: PACU Description of Procedure: Patient is brought to the operating suite where a general anesthetic is administered. She's placed in the dorsal lithotomy position. The appropriate timeout is performed to assure proper patient and procedural identification. The cervix, vagina, and perineal bodies are all prepped and draped in usual sterile fashion. Examination under anesthesia reveals a 14 week size anteverted uterus with tissue in the cervix. Weighted speculum was placed into the vagina. Bladder is drained for 150 mL of urine. The anterior lip of the cervix is grasped with a double-tooth tenaculum. Uterus sounds to a depth of 13 cm in the anteverted position. The cervix is fully dilated. A sharp curette is used to remove the tissue is visible in the cervix. A #11 curved sterile plastic curet is then placed to the dome of the fundus and under appropriate suction pressures the uterus is evacuated for tissue and old blood clot. When it is completed, the sharp medium curette is used to assure no retained products of conception are present. I Refer Is at the Bedside and Bedside Ultrasound Reveals the Presence of the Garner Evacuated Uterine Cavity, Both Cornua Visualized. All Sponge Needle and Enhancement Counts Are Correct. Uterus Is Massaged. Methergine Is Given. Please Note That Preoperative Hemoglobin Was Noted to Be 9.5. All Sponge Needle and Enhancement Counts Are Correct. Patient Is Brought Back to Recovery Room in Stable Condition with a Blood Pressure 114/38, Pulse 98, 100% O2 Saturation. Only Scant Vaginal Bleeding Is Noted at This Time. Blood Type Is A+. Patient Will Follow-Up with Me in the Office in 2 Weeks.
[2020-10-27 12:34] VITALS: RESP 16; TEMP 97.7
[2020-10-27] MEDS ORDERED: HYDROmorphone 0.5 MG/0.5 ML SYRINGE IVP ONE (12:53)
[2020-10-27 14:32] VITALS: BP 116/75; PULSE 83
--- NOTE | 2020-10-28 09:53 | US ---
EXAMINATION TYPE: US guide intraoperative DATE OF EXAM: 10/27/2020 COMPARISON: None HISTORY: D&C TECHNIQUE: Real-time sector scanning sonography is performed over the pelvis. FINDINGS: Uterus is visualized. The endometrial canal is present. No collections are evident. No sign ificant fluid is evident. Exam is limited in [id number]. IMPRESSION: 1. No retention of products. The limited exam is unremarkable.
--- NOTE | 2020-10-29 07:18 | CDI ---
Date 10.29.20 CDS/Wax Blender Name: Aury Chavez Phone: If any questions, call Jacquelin Solo, [employer] P[employer] at Patient Name: Sandee Shepherd Discharge Date: 10.27.2020 ATTENTION: The [facility] Coding Staff appreciate your assistance in clarifying documentation. Please respond to the clarification below the line at the bottom and electronically sign. The [facility] Coding staff will review the response and follow-up if needed. Please note: Queries are made part of the Legal Health Record. If you have any questions, please contact the [employer] P[employer]. Dear Dr. Meza In order to code to the greatest specificity and for the greatest reimbursement I need the following information: You have documented in your H&P under assessment incomplete spontaneous with other complications, in your OP note you have documented pain products of conception for your preop/postop dx. Please clarify diagnosis. Thank you for your kind consideration. __retained products of conception MTDD
== END 2020-10-27 14:24 | disposition home or self-care (01) ==
LOC: OR 10:55
PROVIDERS: ATTEND Obstetrics & Gynecology
DX: O02.1 Missed abortion (principal); O34.02 Maternal care for unspecified congenital malformation of uterus, second trimester; Q51.3 Bicornate uterus; O34.592 Maternal care for other abnormalities of gravid uterus, second trimester; O09.522 Supervision of elderly multigravida, second trimester; O99.012 Anemia complicating pregnancy, second trimester; D64.9 Anemia, unspecified; O99.352 Diseases of the nervous system complicating pregnancy, second trimester; G56.00 Carpal tunnel syndrome, unspecified upper limb; O99.342 Other mental disorders complicating pregnancy, second trimester; F32.9 Major depressive disorder, single episode, unspecified; O99.612 Diseases of the digestive system complicating pregnancy, second trimester; K21.9 Gastro-esophageal reflux disease without esophagitis; G47.00 Insomnia, unspecified; O99.282 Endocrine, nutritional and metabolic diseases complicating pregnancy, second trimester; E28.2 Polycystic ovarian syndrome; O99.512 Diseases of the respiratory system complicating pregnancy, second trimester; J30.2 Other seasonal allergic rhinitis; Z3A.16 16 weeks gestation of pregnancy; Z87.42 Personal history of other diseases of the female genital tract; Z86.19 Personal history of other infectious and parasitic diseases; Z90.49 Acquired absence of other specified parts of digestive tract; Z98.890 Other specified postprocedural states; Z87.59 Personal history of other complications of pregnancy, childbirth and the puerperium; Z87.891 Personal history of nicotine dependence; Z80.41 Family history of malignant neoplasm of ovary; Z83.3 Family history of diabetes mellitus; Z80.0 Family history of malignant neoplasm of digestive organs; Z80.3 Family history of malignant neoplasm of breast; Z81.0 Family history of intellectual disabilities
CPT/HCPCS: 88305; 85025; 59821; J2250; J2210; J2405; J3010; J1885; J0330; J2704; J1170

== ENCOUNTER 2021-10-08 14:48 | Day surgery (SDC) | payer BC ==
[2021-10-08] MEDS ORDERED: LACTATED RINGERS 1,000 ML IV ONE ×3 (15:51→17:55)
[2021-10-08 15:57] LABS: Basophils % (A) 0 %; Eosinophils # (A) 0.1 k/uL (0-0.7); Eosinophils % (A) 1 %; HCT 38.1 % (34.0-46.0); HGB 12.5 gm/dL (11.4-16.0); Lymphocytes # (A) 1.7 k/uL (1.0-4.8); Lymphocytes % (A) 23 %; MCHC 32.8 g/dL (31.0-37.0); MCV 88.3 fL (80.0-100.0); Mean Platelet Volume 8.5; Monocytes # (A) 0.4 k/uL (0-1.0); Monocytes % (A) 5 %; Neutrophils # (A) 5.2 k/uL (1.3-7.7); Neutrophils % (A) 70 %; Platelet Count 216 k/uL (150-450); RBC 4.32 m/uL (3.80-5.40); RDW 14.1 % (11.5-15.5); WBC 7.5 k/uL (3.8-10.6)
[2021-10-08] MEDS ORDERED: fentaNYL (PF) 50 MCG/ML 2 ML AMP ONE (16:14)
[2021-10-08] MEDS ORDERED: KETOROLAC 15 MG/ML 1 ML VIAL ONE (16:14)
[2021-10-08] MEDS ORDERED: METHYLERGONOVINE 0.2 MG/ML 1 ML AMP ONE (16:14)
[2021-10-08] MEDS ORDERED: ONDANSETRON 4 MG/2 ML VIAL ONE ×2 (16:14→18:03)
[2021-10-08] MEDS ORDERED: LIDOCAINE 1% INJ 10MG/ML (20 ML MDV) ONE (16:14)
[2021-10-08] MEDS ORDERED: MIDAZOLAM 2 MG/2 ML VIAL ONE (16:14)
[2021-10-08] MEDS ORDERED: PROPOFOL 10 MG/ML 20 ML VIAL IV ONE (16:14)
[2021-10-08] MEDS ORDERED: SUCCINYLCHOLINE CHLORIDE 100 MG/5 ML SYR IV ONE (16:14)
[2021-10-08] MEDS ORDERED: SODIUM CHLORIDE 0.9% 1,000 ML IV ONE (16:38)
--- NOTE | 2021-10-08 16:59 | P.OP ---
Date of Procedure: 10/08/21 Preoperative Diagnosis: missed Postoperative Diagnosis: same Procedure(s) Performed: suction dilation and curettage Anesthesia: ANNMARIE Surgeon: Amira Mcdonnell Estimated Blood Loss (ml): 5 IV fluids (ml): 500 Urine output (ml): 50 Pathology: other (uterine contents) Condition: stable Disposition: PACU Indications for Procedure: missed ab 6 4/7 weeks, RH positive Operative Findings: moderate amount of products of conception. Description of Procedure: Patient was taken back to the operating suite where general anesthesia was obtained without difficulty by the anesthesia department. She was then prepped and draped in the normal sterile fashion in the dorsal lithotomy position. Red rubber catheter was used to drain the bladder clear yellow urine. Weighted spe culum posterior vaginal vault the anterior lip of the cervix is visualized and grasped with a single-tooth tenaculum. The endocervical canal was then serially dilated. An 8 mm curved curette was then placed through the cervix and toward the endometrial cavity once at the fundus the suction was activated and the uterus was cleared of a moderate amount of products of conception. 3 passes were used with the suction curet. Ultrasound then entered the room. The uterus was noted be clear of products of conception. An additional gentle sharp curettage was performed followed by an additional pass with the suction curet. The uterus is noted be firm. Minimal bleeding was appreciated. The single-tooth tenaculum was taken off of the anterior lip of the cervix. Hemostasis was appreciated. All counts were noted be correct 2. Patient tolerated procedure well and was taken the recovery room awake in stable condition.
[2021-10-08 17:09] VITALS: TEMP 97.2
[2021-10-08] MEDS ORDERED: HYDROmorphone 0.5 MG/0.5 ML SYRINGE IVP ONE ×2 (17:10→17:30)
[2021-10-08 18:20] VITALS: RESP 18
[2021-10-08 18:22] VITALS: PULSE 71
[2021-10-08 18:43] VITALS: BP 113/77
[2021-10-09] MEDS ORDERED: Pre Op ABX Message 1 EACH MISC MISCELLANE ONE (05:00)
--- NOTE | 2021-10-09 06:51 | US ---
EXAMINATION TYPE: US guide intraoperative DATE OF EXAM: 10/08/2021 COMPARISON: Prior ultrasound October 27, 2020 HISTORY: Assess uterus after recent dilatation and curettage to rule out retained products. TECHNIQUE: Ultrasound pelvis. FINDINGS: 2 images are saved which show irregular anechoic structure centrally measuring near 2.0 cm long axis could reflect central fluid within endometrial canal. No visualized pole. Color imagi ng not performed. Exam is limited in field of view. IMPRESSION: No sonographic evidence for retained products of conception during real-time scanning. OB doctor was present during real-time intraoperative scanning.
== END 2021-10-08 18:47 | disposition home or self-care (01) ==
LOC: OR 14:48
PROVIDERS: ATTEND Obstetrics & Gynecology Obstetrics
DX: O02.1 Missed abortion (principal)
CPT/HCPCS: 59820; 86900; 86901; 88305; 85025; 86850; J2250; J2210; J2405; J2001; J3010; J1885; J0330; J2704; J1170

== ENCOUNTER → 2021-10-08 | Outpatient (CLI) | payer BC ==
--- NOTE | 2021-10-08 13:05 | US ---
EXAMINATION TYPE: Transabdominal DATE OF EXAM: 10/08/2021 12:19 PM COMPARISON: NONE CLINICAL HISTORY: 076 Absent heart sounds, O46.91 ANTEPARTUM HEMORRH. Vaginal bleeding x 4 days in ea rly ; EXAM PERFORMED: Transvaginal (TV) and Transabdominal (TA) EXAM MEASUREMENTS: GESTATIONAL AGE / DATING Physician Established: Not yet established ( weeks/ days) EDC: Dates by LMP: (11 weeks/0 days) EDC: 07/23/2021 Dates by First Scan: No previous Dates by Current Scan for: non viable IUP 6weeks 4 days by TV US MATERNAL ANATOMY Uterus: 12.8 x 5.9 x 7.5cm; retroverted Right Ovary: 3.2 x 2.9 x 1.6cm; involuting hypoechoic oval cyst seen = 1.4 x1.3 x 1.3cm. Left Ovary: 3.0 x 3.0 x 2.3cm Post CDS / Adnexa: wnl Presence of free fluid: no Presence of corpus luteal cyst: in left ovary = 1.9 x 2.0 x 1.7cm Presence of subchorionic bleed: no, but irregular gestational sac is noted GESTATION / SURVEY CRL: 0.65cm (6 weeks/4 days) MSD: 2.7cm (7 weeks/4 days) Yolk Sac (normal less than 6mm): not identified separately Heart Rate: none detected by color flow, power color, PW Doppler or M Mode Date of LMP: 07/23/2021 Nonviable IUP is noted. Tech findings called to [place] nurse at Dr Meza's Office at exam's end. JJ Beta HcG (if available): NA IMPRESSION: No cardiac tones detected compatible with demise.
== END | disposition home or self-care (01) ==
LOC: RADUSWWP 11:35
PROVIDERS: ATTEND Obstetrics & Gynecology
DX: O46.91 Antepartum hemorrhage, unspecified, first trimester (principal); O76 Abnormality in fetal heart rate and rhythm complicating labor and delivery; Z3A.01 Less than 8 weeks gestation of pregnancy
CPT/HCPCS: 76801; 76817

== ENCOUNTER → 2021-12-22 | Outpatient (CLI) | payer BC ==
[2021-12-22 14:58] LABS: Basophils # (A) 0.03 X 10*3/uL (0.00-0.10); Basophils % (A) 0.5 %; Eosinophils # (A) 0.12 X 10*3/uL (0.04-0.35); Eosinophils % (A) 2.1 %; HCT 42.9 % (37.2-46.3); HGB 13.1 g/dL (12.0-15.0); Immature Grans, Automated 0.4 %; Lymphocytes # (A) 1.73 X 10*3/uL (0.90-5.00); Lymphocytes % (A) 30.6 %; MCH 26.8 pg (27.0-32.0); MCHC 30.5 g/dL (32.0-37.0); MCV 87.7 fL (80.0-97.0); Mean Platelet Volume 11.9 fL (9.5-12.2); Monocytes # (A) 0.51 X 10*3/uL (0.20-1.00); NRBC Per 100 WBC 0 /100 WBCS (0.0-0.0); Neutrophils # (A) 3.25 X 10*3/uL (1.80-7.70); Neutrophils % (A) 57.4 %; Platelet Count 222 X 10*3/uL (140-440); RBC 4.89 X 10*6/uL (4.10-5.20); RDW 14.3 % (11.5-14.5); WBC 5.66 X 10*3/uL (4.50-10.00)
[2021-12-22 15:09] LABS: Thyroid Peroxidase Antibodies 11.6 U/mL (0.0-33.0)
[2021-12-22 15:19] LABS: % Iron Saturation 14.87 (12.00-45.00); Albumin 4.5 g/dL (3.8-4.9); Albumin/Globulin Ratio 1.77 (1.60-3.17); Anion Gap 10.9 mmol/L (10.00-18.00); BUN/Creat Ratio 17.86 Ratio (12.00-20.00); Blood Urea Nitrogen 14.5 mg/dL (9.0-27.0); Calcium 9.4 mg/dL (8.7-10.3); Carbon Dioxide 22.5 mmol/L (20.0-27.5); Ferritin 22.3 ng/mL (10.0-291.0); Globulin 2.6 g/dL (1.6-3.3); Non-African American GFR(CKD) 93.2 (60.0-200.0); Potassium 4.2 mmol/L (3.5-5.5); Total Bilirubin 0.3 mg/dL (0.30-1.20); Total Protein 7.1 g/dL (6.2-8.2)
[2021-12-22 15:26] LABS: Erythrocyte Sedimentation Rate 13 mm/Hr (0-20)
[2021-12-22 19:06] LABS: Insulin Level 14.1 mIU/mL (3.0-25.0)
== END | disposition home or self-care (01) ==
LOC: LABWHC1 07:50
PROVIDERS: ATTEND Family Medicine
DX: D64.9 Anemia, unspecified (principal); R53.83 Other fatigue; R63.5 Abnormal weight gain
CPT/HCPCS: 36415; 80053; 82306; 82607; 82728; 83036; 83525; 83540; 83550; 84439; 84443; 85025; 85652; 86376

== ENCOUNTER → 2022-06-08 | Outpatient (CLI) | payer BC ==
--- NOTE | 2022-06-08 10:18 | MM ---
Reason for Exam: Clinical finding. Baseline mammogram. Indicated Problems: Pain of the left side (Global) for 1 Month(s) : LT BREAST PAIN CONSTANT WHOLE SUPERIOR BREAST FOR [address] GARCÍA. Patient History: Menarche at age 11. First Full-Term at age 23. Patient has history of breast feeding. Patient used Hormonal Contraceptives for 20 years. Paternal aunt had breast cancer. Last menstrual period: 05/20/2022 Risk Values: Tigist 5 year model risk: 0.3%. NCI Lifetime model risk: 10.0%. Prior Study Comparison: Patient's first Mammogram. Tissue Density: The breast tissue is heterogeneously dense. This may lower the sensitivity of mammography. Findings: Analyzed By CAD. No suspicious mass or worrisome cluster microcalcifications demonstrated within either breast. Overall Assessment: Incomplete: need additional imaging evaluation, BI-RAD 0 Management: Diagnostic Breast Ultrasound of the left breast. A clinical breast exam by your physician is recommended on an annual basis and results should be correlated with mammographic findings. This exam should not preclude additional follow-up of suspicious palpable abnormalities. Results were given to the patient verbally at the time of exam. Electronically signed and approved by: Artis Gil D.O.
--- NOTE | 2022-06-08 10:38 | USB ---
Patient History: Menarche at age 11. First Full-Term at age 23. Patient has history of breast feeding. Patient used Hormonal Contraceptives for 20 years. Paternal aunt had breast cancer. Risk Values: Tigist 5 year model risk: 0.3%. NCI Lifetime model risk: 10.0%. Technique: Method: Targeted. Findings: The upper outer quadrant of the left breast, the upper section of the breast of the left breast, the upper inner quadrant of the left breast, the axilla of the left breast and the retroareolar of the left breast were scanned. Under ultrasound of the left breast from 9-3:00 with evaluation the nipple and axillary tail was obtained. No solid or cystic lesion identified. Dense breast tissue demonstrated throughout..Targeted ultrasound of the left breast from 9-3:00 with evaluation the nipple and axillary tail was obtained. No solid or cystic lesion identified. Dense breast tissue demonstrated throughout.. Overall Assessment: Negative, BI-RAD 1 Management: Screening Mammogram of both breasts at age 40. A clinical breast exam by your physician is recommended on an annual basis and results should be correlated with mammographic findings. This exam should not preclude additional follow-up of suspicious palpable abnormalities. Results were given to the patient verbally at the time of exam. Electronically signed and approved by: Artis Gil D.O.
== END | disposition home or self-care (01) ==
LOC: RADMAMWWP 09:40
PROVIDERS: ATTEND Obstetrics & Gynecology
DX: N64.4 Mastodynia (principal); Z80.3 Family history of malignant neoplasm of breast
CPT/HCPCS: 77062; 77066

== ENCOUNTER 2023-07-24 12:14 | Outpatient (CLI) | payer BC ==
[2023-07-24] MEDS ORDERED: ACETAMINOPHEN IV (For NPO) 1,000 MG in EMPTY BAG 1 BAG IVPB STA (12:42)
[2023-07-24] MEDS ORDERED: ONDANSETRON 4 MG/2 ML VIAL IVP STA (12:44)
[2023-07-24] MEDS ORDERED: LACTATED RINGERS 1,000 ML IV SCH (12:45)
[2023-07-24 12:52] LABS: Appearance,Urine Cloudy (Clear); Bilirubin,Urine Negative (Negative); Blood,Urine Negative (Negative); Color,Urine Yellow; Glucose,Urine (UA) Negative (Negative); Ketones,Urine 3+ (Negative); Leukocyte Esterase,Urine Negative (Negative); Mucus,Urine Rare /hpf; Nitrite,Urine Negative (Negative); PH, Urine 5.5 (5.0-8.0); Protein,Urine Trace (Negative); RBC,Urine 1 /hpf (0-5); Specific Gravity,Urine 1.027 (1.001-1.035); Squamous Epithelial Cell,Urine 6 /hpf (0-4); Urobilinogen,Urine <2.0 mg/dL (<2.0); WBC,Urine 3 /hpf (0-5)
[2023-07-24] MEDS ORDERED: FAMOTIDINE 20 MG/2 ML VIAL IV SCH (13:00)
[2023-07-24 14:23] VITALS: BP 125/56; PULSE 127; RESP 18; TEMP 98.1
--- NOTE | 2023-07-27 17:26 | P.MSEPDOC ---
Presenting Problems - Arrival Data Date of Arrival on Unit: 07/24/23 Time of Arrival on Unit: 12:16 Mode of Transport: Ambulatory - Complaint OB-Reason for Admission/Chief Complaint: Acute Nausea/Vomiting, Pain Medical History - Information : 5 Para: 2 Term: 2 : 0 Abortions: Spontaneous or Elective: 2 Number of Living Children: 2 - Gestational Age Gestational Age by VAISHALI (wks/days): 20 Weeks and 4 Days - History Complications: Multiple Review of Systems - Review of Systems Constitutional: No problems Breast: No problems ENT: No problems Cardiovascular: No problems Respiratory: No problems Gastrointestinal: No problems Genitourinary: No problems Musculoskeletal: No problems Neurological: No problems Skin: No problems Vital Signs - Temperature Temperature: 98.1 F Temperature Source: Temporal Artery Scan - Pulse Right Brachial Pulse Rate: 127 Pulse Assessment Method: Pulse Oximetry - Respirations Respiratory Rate: 18 Oxygen Delivery Method: Room Air O2 Sat by Pulse Oximetry: 99 - Blood Pressure Right Arm Blood Pressure: 125/56 Blood Pressure Mean: 79 Blood Pressure Source: Automatic Cuff Medical Screen Scoring - Cervical Exam Dilation (cm): 0 Effacement (%): 50 Station: -2 Membranes: Intact Physician Notification - Physician Notified Physician Notified Date: 07/24/23 Physician Notified Time: 12:29 Physician: Penny Tadeo Order Received: Yes Maternal Triage Index - Maternal Triage Index Presenting for scheduled procedure w/no complaint: No - Stat/Priority 1 Stat Priority 1: No - Urgent/Priority 2 Urgent Priority 2: No - Prompt/Priority 3 Prompt Priority 3: No - Non-Urgent/Priority 4 Non-Urgent Priority 4: Yes Criteria Met for Priority 4: flu like symptoms Disposition - Disposition OB Disposition: Discharge to home Discharge Date: 07/24/23 Discharge Time: 13:54 I agree with the RN Medical Screening Exam: Yes Physician's MSE Comment: I have neither seen nor examined the patient. Case reviewed; plan agreed upon as documented in EMR&OBIX.: Yes Diagnosis: RELATED CONDITIONS, UNSPECIFIED, SECOND TRIMESTER
== END 2023-07-24 13:54 | disposition home or self-care (01) ==
LOC: FBPOP 12:14
PROVIDERS: ATTEND Obstetrics & Gynecology
DX: O21.9 Vomiting of pregnancy, unspecified (principal); O99.332 Smoking (tobacco) complicating pregnancy, second trimester; Z3A.20 20 weeks gestation of pregnancy; Z87.891 Personal history of nicotine dependence
CPT/HCPCS: 99214; 96361; 96365; 96375; 81001; 87636; J2405; J3490; J0131; 96374

== ENCOUNTER 2024-07-20 10:36 | Day surgery (SDC) | payer BC ==
[2024-07-20 12:21] VITALS: RESP 18; TEMP 97.6
[2024-07-20] MEDS: IV FLUID CONTINUATION 1,000 ML IV ONE ×2 (12:21→12:46)
[2024-07-20] MEDS: LACTATED RINGERS 1,000 ML IV SCH (12:26)
[2024-07-20] MEDS ORDERED: PROPOFOL 10 MG/ML 20 ML VIAL IV ONE (12:47)
[2024-07-20] MEDS ORDERED: LIDOCAINE 1% INJ 10MG/ML (20 ML MDV) ONE (12:47)
[2024-07-20] MEDS ORDERED: fentaNYL (PF) 50 MCG/ML 2 ML AMP ONE (12:47)
--- NOTE | 2024-07-20 13:07 | P.PCN ---
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 PROCEDURE PERFORMED: Colonoscopy. PREOPERATIVE DIAGNOSIS: Personal history of Bailey syndrome and family history of colon cancer. IV sedation per Anesthesia. PROCEDURE: After informed consent was obtained, the patient, was brought into the endoscopy unit. IV sedation was administered by Anesthesia under continuous monitoring. Digital rectal examination was normal. Initially the Olympus CF-160 flexible video colonoscope was then inserted in the rectum, gradually advanced into the cecum without any difficulty. Careful examination was performed as the scope was gradually being withdrawn. Ileocecal valve and the appendiceal orifice were visualized and appeared normal. Prep was excellent. Mucosa of the cecum, ascending colon, transverse colon, descending colon, sigmoid colon, and rectum appeared normal. Retroflexion was performed in the rectum and no lesions were seen. The patient tolerated the procedure well. IMPRESSION: Normal-appearing colon from rectum to cecum with no evidence of colorectal neoplasia. RECOMMENDATIONS: Findings of this examination were discussed with the patient as well as her family.. She was advised to have repeat colonoscopy every 1 to 2 years and an upper endoscopy every 5 years.
[2024-07-20 13:28] VITALS: BP 112/76; PULSE 68
== END 2024-07-20 13:40 | disposition home or self-care (01) ==
LOC: ORWHC2ENDO 10:36
PROVIDERS: ATTEND Internal Medicine Gastroenterology
DX: Z12.11 Encounter for screening for malignant neoplasm of colon (principal); Z15.09 Genetic susceptibility to other malignant neoplasm; I10 Essential (primary) hypertension; G47.33 Obstructive sleep apnea (adult) (pediatric); E66.01 Morbid (severe) obesity due to excess calories; Z79.899 Other long term (current) drug therapy; Z80.0 Family history of malignant neoplasm of digestive organs
CPT/HCPCS: 81025; J2003; J3010; J2704; G0105; 45378